=== PATIENT | male | born 1960 | race Caucasian/White ===

== ENCOUNTER 2017-07-19 09:35 | Day surgery (SDC) | payer OTHER ==
[~2017-07-19] VITALS: Ht 170.2 cm; Wt 94.4 kg
[2017-07-19] MEDS ORDERED: LIPITOR 10MG10 MG PO (09:58)
[2017-07-19] MEDS ORDERED: LOPRESSOR 225 MG/TAB PO (09:59)
[2017-07-19] MEDS ORDERED: PRILOSEC 20MG20 MG PO (09:59)
[2017-07-19] MEDS ORDERED: ASPIRIN 81M81 MG/TA2 PO (10:00)
[2017-07-19] MEDS ORDERED: DEPO-TESTOS100 MG/ML IM (10:01)
[2017-07-19 10:18] VITALS: BP 146/94; PULSE 70; TEMP 97.6
[2017-07-19 12:15] VITALS: BP 121/93; PULSE 72; TEMP 97.3
[2017-07-19 12:30] VITALS: BP 128/97; PULSE 95
[2017-07-19 16:30] VITALS: BP 147/93; PULSE 71
== END 2017-07-19 13:00 | disposition home or self-care (01) ==
LOC: SDCO 09:35
DX: K22.70 Barrett's esophagus without dysplasia (principal); K21.9 Gastro-esophageal reflux disease without esophagitis; D50.9 Iron deficiency anemia, unspecified
CPT/HCPCS: OP; J2250; J3010; J7030